=== PATIENT | male | born 1960 | race Caucasian/White ===

== ENCOUNTER 2021-02-21 08:20 | Day surgery (SDC) | payer OTHER ==
[2021-02-21] MEDS ORDERED: BUPIVACAINE 0.5% VIAL IJ ONE (08:21)
[2021-02-21] MEDS ORDERED: Depo-Medrol 40 MG/ML IM ONE (08:21)
[2021-02-21] MEDS ORDERED: DIPRIVAN 200 MG/20 ML IV ONE (09:43)
[2021-02-21] MEDS ORDERED: Lactated Ringers 1,000 ML IV ONE (16:26)
--- NOTE | 2021-02-22 11:43 | XRAY ---
10 seconds fluoroscopy time for intra-articular injection of the right shoulder.
== END 2021-02-21 10:25 | disposition home or self-care (01) ==
LOC: SDC-PAIN 08:20
PROVIDERS: ATTEND Psychiatry & Neurology Pain Medicine
DX: M19.011 Primary osteoarthritis, right shoulder (principal); E11.9 Type 2 diabetes mellitus without complications; E78.00 Pure hypercholesterolemia, unspecified; F41.9 Anxiety disorder, unspecified; Z79.899 Other long term (current) drug therapy
CPT/HCPCS: 20610; 73030; 77002; 82947; J1030; J2704; Q9966

== ENCOUNTER 2021-04-18 09:50 | Day surgery (SDC) | payer OTHER ==
[2021-04-18] MEDS ORDERED: Decadron 4 MG INJ IV ONE (09:51)
[2021-04-18] MEDS ORDERED: Xylocaine 1% Vial 30 ML PF IJ ONE (09:51)
[2021-04-18] MEDS ORDERED: LIDOCAINE HCL 2% 100 MG/5 ML IJ ONE (09:51)
[2021-04-18] MEDS ORDERED: Lactated Ringers 1,000 ML IV ONE (10:32)
[2021-04-18] MEDS ORDERED: Ketamine HCl 50 MG/ML ONE (10:58)
[2021-04-18] MEDS ORDERED: DIPRIVAN 200 MG/20 ML IV ONE (10:58)
--- NOTE | 2021-04-18 17:10 | XRAY ---
37 seconds of fluoroscopy was used in surgery for right C3-C5 MBB.
--- NOTE | 2021-04-20 09:17 | XRAY ---
Indication: Right C3-C5 MBB. Intraoperative fluoroscopy was provided for 37 seconds. 2 digital spot images submitted for interpretation demonstrate posterior spinal needle tips projected over the expected course of the right C3-C5 nerve roots. Correlate with intraoperative findings/report.
== END 2021-04-18 11:43 | disposition home or self-care (01) ==
LOC: SDC-PAIN 09:50
PROVIDERS: ATTEND Psychiatry & Neurology Pain Medicine
DX: M47.812 Spondylosis without myelopathy or radiculopathy, cervical region (principal); E11.9 Type 2 diabetes mellitus without complications; Z79.899 Other long term (current) drug therapy
CPT/HCPCS: 64490; 64491; 72040; 77002; 82947; J1100; J2001; J2704

== ENCOUNTER 2021-06-27 09:22 | Day surgery (SDC) | payer OTHER ==
[2021-06-27] MEDS ORDERED: LIDOCAINE HCL 2% 100 MG/5 ML IJ ONE (09:23)
[2021-06-27] MEDS ORDERED: Decadron 4 MG INJ IV ONE (09:23)
[2021-06-27] MEDS ORDERED: DIPRIVAN 200 MG/20 ML IV ONE (10:33)
--- NOTE | 2021-06-27 11:42 | XRAY ---
Indication: Left C3-C5 MBB. Intraoperative fluoroscopy provided for 25 seconds. 2 digital spot images submitted for interpretation demonstrate posterior needle tips projecting over the expected left C3-C5 nerve roots. Correlate with intraoperative findings/report.
--- NOTE | 2021-06-27 11:46 | XRAY ---
25 seconds fluoroscopy time in surgery for left C3-C5 MBB.
[2021-06-27] MEDS ORDERED: Lactated Ringers 1,000 ML IV ONE (17:25)
== END 2021-06-27 10:58 | disposition home or self-care (01) ==
LOC: SDC-PAIN 09:22
PROVIDERS: ATTEND Psychiatry & Neurology Pain Medicine
DX: M47.812 Spondylosis without myelopathy or radiculopathy, cervical region (principal); E11.9 Type 2 diabetes mellitus without complications; E78.5 Hyperlipidemia, unspecified; F41.9 Anxiety disorder, unspecified; Z79.899 Other long term (current) drug therapy
CPT/HCPCS: 64490; 64491; 72040; 77002; 82947; J1100; J2704

== ENCOUNTER 2022-04-26 13:03 | Inpatient (IN) | payer OTHER ==
--- NOTE | 2022-04-26 13:11 | ERPHSYRPT ---
- History of Present Illness Time Seen by Provider: 04/26/22 13:11 Source: patient Exam Limitations: no limitations Physician History: This is a 61-year-old white male patient who over the last few days has had worsening symptoms of fatigue, thirst and black tarry stool episodes. Patient has had anemia to the point where he has required blood transfusions in the distant past. Patient has type 2 diabetes, has elevated cholesterol anxiety issues. He also has a history of chronic alcoholism. However, he states he has not had alcohol since July 2021. Patient takes no medications chronically and he has no known drug allergies. There is been no chest pain but some mild shortness of breath with exertion. He has had no hematemesis. He has had no hematuria. Timing/Duration: day(s) (Last few days) Severity: moderate Associated Symptoms: abdominal pain (Mild), shortness of breath (With exertion), weakness, No chest pain, No fever Allergies/Adverse Reactions: No Known Drug Allergies Allergy (Verified 10/01/12 11:35) Home Medications: ALPRAZolam 1 MG [Xanax 1 mg] DAILY 10/01/12 [History] Fluticasone Propionate [Flovent Diskus] 1 spray IH DAILY PRN 10/01/12 [History] Dapagliflozin Propanediol [Farxiga] 10 mg PO DAILY 04/26/22 [History] Insulin Glargine,Hum.rec.anlog [Basaglar Kwikpen U-100] 25 unit SQ BID 04/26/22 [History] Liraglutide [Victoza 2-Yaniv] 1.8 mg SQ DAILY 04/26/22 [History] Lorazepam 1 mg [Ativan 1 MG] 1 mg PO 04/26/22 [History] Hx Influenza Vaccination/Date Given: Yes Hx Pneumococcal Vaccination/Date Given: No Travel Risk - International Travel Have you traveled outside of the country in past 3 weeks: No - Coronavirus Screening Are you exhibiting any of the following symptoms?: No Close contact with a COVID-19 positive Pt in past 14-21 Days: No - Review of Systems Constitutional: Weakness Eyes: No Symptoms Ears, Nose, & Throat: No Symptoms Respiratory: Dyspnea on Exertion (BLACK) Cardiac: No Symptoms Abdominal/Gastrointestinal: Abdominal Pain (Mild) Genitourinary Symptoms: No Symptoms Musculoskeletal: No Symptoms Skin: No Symptoms Neurological: No Symptoms Psychological: No Symptoms Endocrine: No Symptoms Hematologic/Lymphatic: No Symptoms Immunological/Allergic: No Symptoms All Other Systems: Reviewed and Negative - Past Medical History Pertinent Past Medical History: No Neurological History: No Pertinent History ENT History: No Pertinent History Cardiac History: No Pertinent History Respiratory History: No Pertinent History Endocrine Medical History: Diabetes Type II Musculoskeletal History: No Pertinent History GI Medical History: No Pertinent History History: No Pertinent History Psycho-Social History: Anxiety Male Reproductive Disorders: No Pertinent History - Past Surgical History Past Surgical History: Yes Neuro Surgical History: No Pertinent History Cardiac: No Pertinent History Respiratory: No Pertinent History Gastrointestinal: No Pertinent History Genitourinary: No Pertinent History Musculoskeletal: Orthopedic Surgery, Other Male Surgical History: No Pertinent History Other Surgical History: left arm bone cyst removed,right knee ligament surgery, - Social History Smoking Status: Former smoker Exposure to second hand smoke: No Drug Use: none - Nursing Vital Signs Nursing Vital Signs: Initial Vital Signs Temperature 97.6 F 04/26/22 13:10 Pulse Rate 121 H 04/26/22 13:10 Respiratory Rate 18 04/26/22 13:10 Blood Pressure 118/78 04/26/22 13:10 O2 Sat by Pulse Oximetry 98 04/26/22 13:10 Pain Scale Pain Intensity 4 - Physical Exam General Appearance: no apparent distress, alert, anxiety Eye Exam: PERRL/EOMI, scleral icterus (+/-), pale conjunctivae Ears, Nose, Throat Exam: normal ENT inspection, dry mucous membranes Neck Exam: normal inspection, non-tender Respiratory Exam: normal breath sounds, lungs clear, No chest tenderness, No respiratory distress Cardiovascular Exam: tachycardia Gastrointestinal/Abdomen Exam: soft, normal bowel sounds, tenderness (Mild right lower quadrant to palpation), No guarding, No rebound Rectal Exam: not done Back Exam: normal inspection, normal range of motion, No CVA tenderness, No vertebral tenderness Extremity Exam: normal inspection, normal range of motion, pelvis stable Neurologic Exam: alert, oriented x 3, cooperative, bond runner II-XII nml as tested, normal mood/affect, nml cerebellar function, nml station & gait, sensation nml Skin Exam: jaundice, pale Lymphatic Exam: No adenopathy SpO2 Interpretation: normal - Course Nursing assessment & vital signs reviewed: Yes Ordered Tests: Active Orders 24 hr Category Date Time Status Clean Catch Urine Specimen STAT Care 04/26/22 14:05 Active IV Insertion STAT Care 04/26/22 13:28 Active ABDOMEN AND PELVIS W/0 CONTRAS [CT] Stat Exams 04/26/22 14:42 Completed CHEST WITH CONTRAST [CT] Stat Exams 04/26/22 17:34 Taken AMYLASE Stat Lab 04/26/22 13:50 Completed BMP Stat Lab 04/26/22 Completed CBC W DIFF Stat Lab 04/26/22 13:50 Results CMP Stat Lab 04/26/22 13:50 Completed ETHYL ALCOHOL Stat Lab 04/26/22 13:50 Completed FECAL OCCULT BLOOD - SCREENING Stat Lab 04/26/22 19:15 Ordered LIPASE Stat Lab 04/26/22 13:50 Completed Lactic Acid Stat Lab 04/26/22 13:42 Completed Lactic Acid Stat Lab 04/26/22 15:54 Completed Manual Differential NC Stat Lab 04/26/22 13:50 Results POCT GLUCOSE Stat Lab 04/26/22 16:45 Completed PROCALCITONIN Stat Lab 04/26/22 15:15 Completed Pathologist Review Stat Lab 04/26/22 13:50 Results UA W/RFX CULTURE Stat Lab 04/26/22 13:55 Completed Urine Triage Profile Stat Lab 04/26/22 14:15 Completed Transfer Order Routine Transfer 04/26/22 Ordered Medication Summary Discontinued Medications Generic Name Dose Route Start Last Admin Trade Name Melani PRN Reason Stop Dose Admin Sodium Chloride 1,000 mls @ 999 mls/hr 04/26/22 13:28 04/26/22 14:58 Sodium Chloride 0.9% 1000 Ml IV 04/26/22 14:28 Infused .Q1H1M STA Infusion Sodium Chloride Confirm 04/26/22 13:47 Sodium Chloride 0.9% 1000 Ml Administered 04/26/22 13:48 Dose 1,000 mls @ ud .ROUTE .STK-MED ONE Meropenem 1 gm/ Sodium 100 mls @ 200 mls/hr 04/26/22 14:20 04/26/22 14:52 Chloride IV 04/26/22 14:49 200 mls/hr STAT ONE Administration Sodium Chloride 1,000 mls @ 999 mls/hr 04/26/22 14:20 04/26/22 16:23 Sodium Chloride 0.9% 1000 Ml IV 04/26/22 15:20 Infused .Q1H1M STA Infusion Sodium Chloride Confirm 04/26/22 14:50 Sodium Chloride 100ml Mini-Bag Plus Administered 04/26/22 14:51 Dose 100 mls @ ud IV .STK-MED ONE Sodium Chloride 1,000 mls @ 999 mls/hr 04/26/22 15:13 04/26/22 17:27 Sodium Chloride 0.9% 1000 Ml IV 04/26/22 16:13 Infused .Q1H1M STA Infusion Sodium Chloride Confirm 04/26/22 15:16 Sodium Chloride 0.9% 1000 Ml Administered 04/26/22 15:17 Dose 1,000 mls @ ud .ROUTE .STK-MED ONE Sodium Chloride Confirm 04/26/22 16:23 Sodium Chloride 0.9% 1000 Ml Administered 04/26/22 16:24 Dose 1,000 mls @ ud .ROUTE .STK-MED ONE Meropenem Confirm 04/26/22 14:49 Meropenem 1 Gm Vial Administered 04/26/22 14:50 Dose 1 gm IV .STK-MED ONE Ondansetron HCl 4 mg 04/26/22 13:28 04/26/22 13:52 Ondansetron Hcl 4 Mg/2 Ml Vial IV 04/26/22 13:29 4 mg STAT ONE Administration Ondansetron HCl Confirm 04/26/22 13:46 Ondansetron Hcl 4 Mg/2 Ml Vial Administered 04/26/22 13:47 Dose 4 mg .ROUTE .STK-MED ONE Pantoprazole Sodium 40 mg 04/26/22 13:28 04/26/22 13:52 Pantoprazole 40 Mg Vial IV 04/26/22 13:29 40 mg STAT ONE Administration Pantoprazole Sodium Confirm 04/26/22 13:46 Pantoprazole 40 Mg Vial Administered 04/26/22 13:47 Dose 40 mg IV .STK-MED ONE Lab/Rad Data: Laboratory Result Diagrams 04/26/22 13:50 04/26/22 Unknown Laboratory Results 04/26/22 04/26/22 04/26/22 Range/Units Unknown 17:20 16:45 WBC (4.0-10.5) x10^3/uL RBC (4.1-5.6) x10^6/uL Hgb (12.5-18.0) g/dL Hct (42-50) % MCV (78-100) fL MCH (26-32) pg MCHC (32-36) g/dL RDW (11.5-14.0) % Plt Count (150-450) x10^3/uL MPV (7.5-11.0) fL Gran % (36.0-66.0) % Immature Gran % (Auto) (0.00-0.4) % Nucleat RBC Rel Count (0.00-0.1) % Eos # (Auto) (0-0.5) x10^3/uL Immature Gran # (Auto) (0.00-0.03) x10^3u/L Absolute Lymphs (auto) (1.0-4.6) x10^3/uL Absolute Monos (auto) (0.0-1.3) x10^3/uL Absolute Nucleated RBC (0.00-0.01) x10^3u/L Lymphocytes % (24.0-44.0) % Monocytes % (0.0-12.0) % Eosinophils % (0.00-5.0) % Basophils % (0.0-0.4) % Absolute Granulocytes (1.4-6.9) x10^3/uL Segmented Neutrophils (36.-66.) % Lymphocytes (Manual) (24-44) % Monocytes (Manual) (0.0-12.0) % Eosinophils (Manual) (0.00-3.0) % Basophils (Manual) (0.0-1.0) % Basophils # (0-0.4) x10^3/uL Platelet Estimate (NORMAL) RBC Morphology Anisocytosis Morphology Comment Smear Path Review Sodium 137 (137-145) mmol/L Potassium 4.7 (3.5-5.1) mmol/L Chloride 108 H (98-107) mmol/L Carbon Dioxide 18 L (22-30) mmol/L Anion Gap 15.2 H (5-15) MEQ/L BUN 50 H (9-20) mg/dL Creatinine 0.80 (0.66-1.25) mg/dL Estimated GFR > 60.0 ML/MIN Glucose 184 H (74-106) mg/dL POC Glucometer 166 H (74 to 106) mg/dL Lactic Acid (0.4-2.0) Calcium 7.4 L (8.4-10.2) mg/dL Total Bilirubin (0.2-1.3) mg/dL AST (17-59) U/L ALT (0-50) U/L Alkaline Phosphatase (38-126) U/L Serum Total Protein (6.3-8.2) g/dL Albumin (3.5-5.0) g/dL Amylase (30-110) U/L Lipase (23-300) U/L Procalcitonin (0.030-0.080) ng/mL Urinalys Dipstick Clnc Urine Color (YELLOW) Urine Appearance (CLEAR) Urine pH (5-6) Ur Specific [place] (1.005-1.025) POC Urine Protein Conf (Negative) Urine Ketones (NEGATIVE) Urine Nitrite (NEGATIVE) Urine Bilirubin (NEGATIVE) Urine Urobilinogen (0-1) mg/dL Urine Leukocytes (NEGATIVE) Urine WBC (Auto) (0-5) /HPF Urine RBC (Auto) (0-2) /HPF U Epithel Cells (Auto) (FEW) /HPF Urine Bacteria (Auto) (NEGATIVE) /HPF Urine RBC (0-5) Kyle/ul Urine Mucus (Auto) (NEGATIVE) /HPF Ur Culture Indicated? Urine Glucose (NEGATIVE) mg/dL Urine Opiates Level (NEGATIVE) Ur Methadone (NEGATIVE) Urine Barbiturates (NEGATIVE) Ur Phencyclidine (PCP) (NEGATIVE) Urine Amphetamine (NEGATIVE) U Benzodiazepine Level (NEGATIVE) Urine Cocaine (NEGATIVE) Urine Marijuana (THC) (NEGATIVE) Ethyl Alcohol (0-10) mg/dL Influenza Type A Ag NEGATIVE (NEGATIVE) Influenza Type B Ag NEGATIVE (NEGATIVE) RSV (PCR) NEGATIVE (Negative) SARS-CoV-2 (PCR) NEGATIVE (NEGATIVE) 04/26/22 04/26/22 04/26/22 Range/Units 15:54 15:15 14:15 WBC (4.0-10.5) x10^3/uL RBC (4.1-5.6) x10^6/uL Hgb (12.5-18.0) g/dL Hct (42-50) % MCV (78-100) fL MCH (26-32) pg MCHC (32-36) g/dL RDW (11.5-14.0) % Plt Count (150-450) x10^3/uL MPV (7.5-11.0) fL Gran % (36.0-66.0) % Immature Gran % (Auto) (0.00-0.4) % Nucleat RBC Rel Count (0.00-0.1) % Eos # (Auto) (0-0.5) x10^3/uL Immature Gran # (Auto) (0.00-0.03) x10^3u/L Absolute Lymphs (auto) (1.0-4.6) x10^3/uL Absolute Monos (auto) (0.0-1.3) x10^3/uL Absolute Nucleated RBC (0.00-0.01) x10^3u/L Lymphocytes % (24.0-44.0) % Monocytes % (0.0-12.0) % Eosinophils % (0.00-5.0) % Basophils % (0.0-0.4) % Absolute Granulocytes (1.4-6.9) x10^3/uL Segmented Neutrophils (36.-66.) % Lymphocytes (Manual) (24-44) % Monocytes (Manual) (0.0-12.0) % Eosinophils (Manual) (0.00-3.0) % Basophils (Manual) (0.0-1.0) % Basophils # (0-0.4) x10^3/uL Platelet Estimate (NORMAL) RBC Morphology Anisocytosis Morphology Comment Smear Path Review Sodium (137-145) mmol/L Potassium (3.5-5.1) mmol/L Chloride (98-107) mmol/L Carbon Dioxide (22-30) mmol/L Anion Gap (5-15) MEQ/L BUN (9-20) mg/dL Creatinine (0.66-1.25) mg/dL Estimated GFR ML/MIN Glucose (74-106) mg/dL POC Glucometer (74 to 106) mg/dL Lactic Acid 4.6 H (0.4-2.0) Calcium (8.4-10.2) mg/dL Total Bilirubin (0.2-1.3) mg/dL AST (17-59) U/L ALT (0-50) U/L Alkaline Phosphatase (38-126) U/L Serum Total Protein (6.3-8.2) g/dL Albumin (3.5-5.0) g/dL Amylase (30-110) U/L Lipase (23-300) U/L Procalcitonin 0.231 H (0.030-0.080) ng/mL Urinalys Dipstick Clnc Urine Color (YELLOW) Urine Appearance (CLEAR) Urine pH (5-6) Ur Specific [place] (1.005-1.025) POC Urine Protein Conf (Negative) Urine Ketones (NEGATIVE) Urine Nitrite (NEGATIVE) Urine Bilirubin (NEGATIVE) Urine Urobilinogen (0-1) mg/dL Urine Leukocytes (NEGATIVE) Urine WBC (Auto) (0-5) /HPF Urine RBC (Auto) (0-2) /HPF U Epithel Cells (Auto) (FEW) /HPF Urine Bacteria (Auto) (NEGATIVE) /HPF Urine RBC (0-5) Kyle/ul Urine Mucus (Auto) (NEGATIVE) /HPF Ur Culture Indicated? Urine Glucose (NEGATIVE) mg/dL Urine Opiates Level NEGATIVE (NEGATIVE) Ur Methadone NEGATIVE (NEGATIVE) Urine Barbiturates NEGATIVE (NEGATIVE) Ur Phencyclidine (PCP) NEGATIVE (NEGATIVE) Urine Amphetamine NEGATIVE (NEGATIVE) U Benzodiazepine Level NEGATIVE (NEGATIVE) Urine Cocaine NEGATIVE (NEGATIVE) Urine Marijuana (THC) NEGATIVE (NEGATIVE) Ethyl Alcohol (0-10) mg/dL Influenza Type A Ag (NEGATIVE) Influenza Type B Ag (NEGATIVE) RSV (PCR) (Negative) SARS-CoV-2 (PCR) (NEGATIVE) 04/26/22 04/26/22 04/26/22 Range/Units 13:55 13:50 13:50 WBC (4.0-10.5) x10^3/uL RBC (4.1-5.6) x10^6/uL Hgb (12.5-18.0) g/dL Hct (42-50) % MCV (78-100) fL MCH (26-32) pg MCHC (32-36) g/dL RDW (11.5-14.0) % Plt Count (150-450) x10^3/uL MPV (7.5-11.0) fL Gran % (36.0-66.0) % Immature Gran % (Auto) (0.00-0.4) % Nucleat RBC Rel Count (0.00-0.1) % Eos # (Auto) (0-0.5) x10^3/uL Immature Gran # (Auto) (0.00-0.03) x10^3u/L Absolute Lymphs (auto) (1.0-4.6) x10^3/uL Absolute Monos (auto) (0.0-1.3) x10^3/uL Absolute Nucleated RBC (0.00-0.01) x10^3u/L Lymphocytes % (24.0-44.0) % Monocytes % (0.0-12.0) % Eosinophils % (0.00-5.0) % Basophils % (0.0-0.4) % Absolute Granulocytes (1.4-6.9) x10^3/uL Segmented Neutrophils (36.-66.) % Lymphocytes (Manual) (24-44) % Monocytes (Manual) (0.0-12.0) % Eosinophils (Manual) (0.00-3.0) % Basophils (Manual) (0.0-1.0) % Basophils # (0-0.4) x10^3/uL Platelet Estimate (NORMAL) RBC Morphology Anisocytosis Morphology Comment Smear Path Review Sodium 135 L (137-145) mmol/L Potassium 4.8 (3.5-5.1) mmol/L Chloride 106 (98-107) mmol/L Carbon Dioxide 17 L (22-30) mmol/L Anion Gap 17.7 H (5-15) MEQ/L BUN 51 H (9-20) mg/dL Creatinine 0.79 (0.66-1.25) mg/dL Estimated GFR > 60.0 ML/MIN Glucose 210 H (74-106) mg/dL POC Glucometer (74 to 106) mg/dL Lactic Acid (0.4-2.0) Calcium 8.1 L (8.4-10.2) mg/dL Total Bilirubin 1.50 H (0.2-1.3) mg/dL AST 40 (17-59) U/L ALT 34 (0-50) U/L Alkaline Phosphatase 56 (38-126) U/L Serum Total Protein 5.5 L (6.3-8.2) g/dL Albumin 3.3 L (3.5-5.0) g/dL Amylase 45 (30-110) U/L Lipase 119 (23-300) U/L Procalcitonin (0.030-0.080) ng/mL Urinalys Dipstick Clnc MAIN LAB Urine Color YELLOW (YELLOW) Urine Appearance CLEAR (CLEAR) Urine pH 5.5 (5-6) Ur Specific [place] 1.010 (1.005-1.025) POC Urine Protein Conf NEGATIVE (Negative) Urine Ketones MODERATE-40 (NEGATIVE) Urine Nitrite NEGATIVE (NEGATIVE) Urine Bilirubin NEGATIVE (NEGATIVE) Urine Urobilinogen 0.2 (0-1) mg/dL Urine Leukocytes NEGATIVE (NEGATIVE) Urine WBC (Auto) NONE (0-5) /HPF Urine RBC (Auto) NONE (0-2) /HPF U Epithel Cells (Auto) NONE (FEW) /HPF Urine Bacteria (Auto) NONE (NEGATIVE) /HPF Urine RBC NEGATIVE (0-5) Kyle/ul Urine Mucus (Auto) SLIGHT (NEGATIVE) /HPF Ur Culture Indicated? NO Urine Glucose 500 (NEGATIVE) mg/dL Urine Opiates Level (NEGATIVE) Ur Methadone (NEGATIVE) Urine Barbiturates (NEGATIVE) Ur Phencyclidine (PCP) (NEGATIVE) Urine Amphetamine (NEGATIVE) U Benzodiazepine Level (NEGATIVE) Urine Cocaine (NEGATIVE) Urine Marijuana (THC) (NEGATIVE) Ethyl Alcohol < 10 (0-10) mg/dL Influenza Type A Ag (NEGATIVE) Influenza Type B Ag (NEGATIVE) RSV (PCR) (Negative) SARS-CoV-2 (PCR) (NEGATIVE) 04/26/22 04/26/22 Range/Units 13:50 13:42 WBC 29.6 H* (4.0-10.5) x10^3/uL RBC 2.84 L (4.1-5.6) x10^6/uL Hgb 9.1 L (12.5-18.0) g/dL Hct 27.9 L (42-50) % MCV 98.2 (78-100) fL MCH 32.0 (26-32) pg MCHC 32.6 (32-36) g/dL RDW 15.1 H (11.5-14.0) % Plt Count 207 (150-450) x10^3/uL MPV 12.2 H (7.5-11.0) fL Gran % 50.5 (36.0-66.0) % Immature Gran % (Auto) 1.3 H (0.00-0.4) % Nucleat RBC Rel Count 0.3 H (0.00-0.1) % Eos # (Auto) 0.08 (0-0.5) x10^3/uL Immature Gran # (Auto) 0.39 H (0.00-0.03) x10^3u/L Absolute Lymphs (auto) 13.14 H (1.0-4.6) x10^3/uL Absolute Monos (auto) 0.82 (0.0-1.3) x10^3/uL Absolute Nucleated RBC 0.10 H (0.00-0.01) x10^3u/L Lymphocytes % 44.5 H (24.0-44.0) % Monocytes % 2.8 (0.0-12.0) % Eosinophils % 0.3 (0.00-5.0) % Basophils % 0.6 (0.0-0.4) % Absolute Granulocytes 14.95 H (1.4-6.9) x10^3/uL Segmented Neutrophils 85 H (36.-66.) % Lymphocytes (Manual) 12 L (24-44) % Monocytes (Manual) 1 (0.0-12.0) % Eosinophils (Manual) 1 (0.00-3.0) % Basophils (Manual) 1 (0.0-1.0) % Basophils # 0.17 (0-0.4) x10^3/uL Platelet Estimate NORMAL (NORMAL) RBC Morphology ABNORMAL Anisocytosis 2+ Morphology Comment Smear Path Review Pending Sodium (137-145) mmol/L Potassium (3.5-5.1) mmol/L Chloride (98-107) mmol/L Carbon Dioxide (22-30) mmol/L Anion Gap (5-15) MEQ/L BUN (9-20) mg/dL Creatinine (0.66-1.25) mg/dL Estimated GFR ML/MIN Glucose (74-106) mg/dL POC Glucometer (74 to 106) mg/dL Lactic Acid 5.1 H (0.4-2.0) Calcium (8.4-10.2) mg/dL Total Bilirubin (0.2-1.3) mg/dL AST (17-59) U/L ALT (0-50) U/L Alkaline Phosphatase (38-126) U/L Serum Total Protein (6.3-8.2) g/dL Albumin (3.5-5.0) g/dL Amylase (30-110) U/L Lipase (23-300) U/L Procalcitonin (0.030-0.080) ng/mL Urinalys Dipstick Clnc Urine Color (YELLOW) Urine Appearance (CLEAR) Urine pH (5-6) Ur Specific [place] (1.005-1.025) POC Urine Protein Conf (Negative) Urine Ketones (NEGATIVE) Urine Nitrite (NEGATIVE) Urine Bilirubin (NEGATIVE) Urine Urobilinogen (0-1) mg/dL Urine Leukocytes (NEGATIVE) Urine WBC (Auto) (0-5) /HPF Urine RBC (Auto) (0-2) /HPF U Epithel Cells (Auto) (FEW) /HPF Urine Bacteria (Auto) (NEGATIVE) /HPF Urine RBC (0-5) Kyle/ul Urine Mucus (Auto) (NEGATIVE) /HPF Ur Culture Indicated? Urine Glucose (NEGATIVE) mg/dL Urine Opiates Level (NEGATIVE) Ur Methadone (NEGATIVE) Urine Barbiturates (NEGATIVE) Ur Phencyclidine (PCP) (NEGATIVE) Urine Amphetamine (NEGATIVE) U Benzodiazepine Level (NEGATIVE) Urine Cocaine (NEGATIVE) Urine Marijuana (THC) (NEGATIVE) Ethyl Alcohol (0-10) mg/dL Influenza Type A Ag (NEGATIVE) Influenza Type B Ag (NEGATIVE) RSV (PCR) (Negative) SARS-CoV-2 (PCR) (NEGATIVE) - Progress Progress: improved, re-examined Progress Note: 04/26/22 15:24 CAT scan of the abdomen pelvis without contrast shows fluid distention of the jejunum: Ileus versus enteritis. There is a cirrhotic liver. There is diverticulosis without diverticulitis. 04/26/22 20:05 CTA of chest shows no pulmonary emboli. There is no evidence of any acute cardiopulmonary process. Medical decision making: This patient has leukocytosis with lactic acidemia. We do not have a source of his presumed/possible sepsis. He also has dark tarry stools and hemoglobin 9.1. I spoke with Dr. Haney who is covering this weekend as hospitalist. He wanted me to perform a CT of the chest as well as add a procalcitonin. The procalcitonin level is high and the CTA of the chest shows no acute cardiopulmonary process. We will admit him into the hospital and provide him with IV hydration as well as continue Primaxin and put him on a diabetic diet and sliding scale insulin. We will also obtain a fecal occult s tool. Discussed with : Shola Counseled pt/family regarding: lab results, diagnosis, rad results - Departure Departure Disposition: In-patient Admission Clinical Impression: Leukocytosis, Anemia, Lactic acidemia, Sepsis, Dehydration Condition: Fair Critical Care Time: Yes Critical Care Time(excluding separately billable procedures): Critical 30-74 mins Referrals: LIONEL ROE DO [Primary Care Provider] - Follow up/PCP as directed
[2022-04-26] MEDS ORDERED: PROTONIX 40 MG IV IV ONE ×2 (13:28→13:46)
[2022-04-26] MEDS ORDERED: Sodium Chloride 0.9% 1000 ML 1,000 ML IV STA ×3 (13:28→15:13)
[2022-04-26] MEDS ORDERED: Zofran 4 MG/2 ML VIAL IV ONE (13:28)
[2022-04-26] MEDS ORDERED: Zofran 4 MG/2 ML VIAL ONE (13:46)
[2022-04-26] MEDS ORDERED: Sodium Chloride 0.9% 1000 ML 1,000 ML ONE ×3 (13:47→16:23)
[2022-04-26 14:00] LABS: Absolute Neutrophil Ct (ANC) 14.95 x10^3/uL (1.4-6.9); Basophil (Absolute #) 0.17 x10^3/uL (0-0.4); Eosinophil % 0.3 % (0.00-5.0); Eosinophil (Absolute #) 0.08 x10^3/uL (0-0.5); Hematocrit 27.9 % (42-50); Hemoglobin 9.1 g/dL (12.5-18.0); Lymphocyte (Absolute #) 13.14 x10^3/uL (1.0-4.6); Lymphocytes % 44.5 % (24.0-44.0); Mean Cell Volume 98.2 fL (78-100); Mean Corpuscular Hgb Concent. 32.6 g/dL (32-36); Mean Platelet Volume 12.2 fL (7.5-11.0); Monocyte (Absolute #) 0.82 x10^3/uL (0.0-1.3); Monocytes % 2.8 % (0.0-12.0); Neutrophil % 50.5 % (36.0-66.0); Platelet Count 207 x10^3/uL (150-450); Red Blood Count 2.84 x10^6/uL (4.1-5.6); Red Cell Distribution Width 15.1 % (11.5-14.0)
[2022-04-26 14:03] LABS: White Blood Count 29.6 x10^3/uL (4.0-10.5)
[2022-04-26 14:06] LABS: Mucus SLIGHT /HPF (NEGATIVE)
[2022-04-26 14:07] LABS: Appearance CLEAR (CLEAR); Bilirubin NEGATIVE (NEGATIVE); Dipstick done @ ? MAIN LAB; Glucose 500 mg/dL (NEGATIVE); Ketones MODERATE-40 (NEGATIVE); Nitrite NEGATIVE (NEGATIVE); Ph 5.5 (5-6); Protein,Urine Dip NEGATIVE (Negative); RBC NEGATIVE Ery/ul (0-5); Urobilinogen 0.2 mg/dL (0-1)
[2022-04-26 14:08] LABS: Urine Cultured Indicated? NO
[2022-04-26 14:12] LABS: ALBUMIN 3.3 g/dL (3.5-5.0); ALKALINE PHOSPHATASE 56 U/L (38-126); AMYLASE 45 U/L (30-110); ANION GAP 17.7 MEQ/L (5-15); BLOOD UREA NITROGEN 51 mg/dL (9-20); CHLORIDE 106 mmol/L (98-107); Calcium 8.1 mg/dL (8.4-10.2); Carbon Dioxide 17 mmol/L (22-30); Creatinine 1 0.79 mg/dL (0.66-1.25); EST GLOMERULAR FILTRATION RATE > 60.0 ML/MIN; Glucose 210 mg/dL (74-106); LIPASE 119 U/L (23-300); Potassium 4.8 mmol/L (3.5-5.1); SGOT/AST 40 U/L (17-59); SGPT/ALT 34 U/L (0-50); SODIUM 135 mmol/L (137-145); Total Protein 5.5 g/dL (6.3-8.2)
[2022-04-26] MEDS ORDERED: Merrem 1 GM in Sodium Chloride 100ML MINI-BAG PLUS 100 ML IV ONE (14:20)
[2022-04-26 14:31] LABS: Amphetamine,Urine NEGATIVE (NEGATIVE); Barbiturate,Urine NEGATIVE (NEGATIVE); Benzodiazepine,Urine NEGATIVE (NEGATIVE); Cocaine,Urine NEGATIVE (NEGATIVE); Methadone,Urine NEGATIVE (NEGATIVE); Opiate,Urine NEGATIVE (NEGATIVE); PCP,Urine NEGATIVE (NEGATIVE); THC,Urine NEGATIVE (NEGATIVE)
[2022-04-26] MEDS ORDERED: Merrem IV ONE ×2 (14:49→21:54)
[2022-04-26] MEDS ORDERED: Sodium Chloride 100ML MINI-BAG PLUS 100 ML IV ONE ×2 (14:50→21:57)
--- NOTE | 2022-04-26 15:00 | XRAY ---
Indication: Abdomen pain and tarry stools. Multiple contiguous axial images obtained through the abdomen and pelvis without contrast. Comparison: None Lung bases demonstrates pulmonary emphysema and small right lower lobe calcified granuloma. No infiltrate or effusion. Heart not enlarged. Stomach is distended with food/fluid. Noncontrasted stomach and bowel loops appear nonobstructed. Jejunal bowel loop is mildly distended up to 4.1 cm either focal ileus versus enteritis. Appendix not visualized. Sigmoid diverticulosis without diverticulitis. No free fluid/air. Liver demonstrates micronodular margins favoring cirrhosis. Gallbladder mildly distended without gallstones or biliary distention. 13.2 cm splenomegaly with calcified granuloma. Remaining liver, gallbladder, pancreas, spleen, adrenal glands, kidneys, ureters, and bladder are unremarkable for noncontrast exam. Mild scattered aortoiliac calcifications without AAA. Osseous structures intact with mild degenerative changes throughout the thoracolumbar spine. Left iliac crest demonstrates small old nonunited fracture. Impression: 1. Fluid distended jejunum, ileus versus enteritis. 2. Chronic findings including sigmoid diverticulosis, cirrhotic liver, splenomegaly, arteriosclerotic disease, pulmonary emphysema, chronic bony findings, and old granulomatous disease.
[2022-04-26 15:30] LABS: Basophil 1 % (0.0-1.0); Eosinophil 1 % (0.00-3.0); Lymphocytes 12 % (24-44); Monocyte 1 % (0.0-12.0); Platelet Estimate NORMAL (NORMAL); Total Cells Counted 100
[2022-04-26 15:31] LABS: ANISOCYTOSIS 2+
[2022-04-26 15:55] LABS: ANION GAP 15.2 MEQ/L (5-15); BLOOD UREA NITROGEN 50 mg/dL (9-20); CHLORIDE 108 mmol/L (98-107); Calcium 7.4 mg/dL (8.4-10.2); Carbon Dioxide 18 mmol/L (22-30); EST GLOMERULAR FILTRATION RATE > 60.0 ML/MIN; Glucose 184 mg/dL (74-106); Potassium 4.7 mmol/L (3.5-5.1); SODIUM 137 mmol/L (137-145)
[2022-04-26 18:02] LABS: INFLUENZA A NEGATIVE (NEGATIVE); INFLUENZA B NEGATIVE (NEGATIVE); RESPIRATORY SYNCTIAL VIRUS NEGATIVE (Negative); SARS-CoV-2 Xpert Express NEGATIVE (NEGATIVE)
[2022-04-26] MEDS ORDERED: Zofran 4 MG/2 ML VIAL IV PRN (20:34)
[2022-04-26] MEDS ORDERED: PROTONIX 40 MG IV IV SCH (20:34)
[2022-04-26] MEDS ORDERED: TYLENOL 325 MG PO PRN (20:34)
[2022-04-26] MEDS ORDERED: Sodium Chloride 0.9% 1000 ML 1,000 ML IV SCH (20:34)
--- NOTE | 2022-04-26 22:39 | XRAY ---
Indication: Short of breath. Leukocytosis. Pulmonary embolus. Multiple contiguous axial images obtained through the chest using 100 cc Isovue 370 contrast and PE protocol. Comparison: None Good opacification of the pulmonary arteries to include the lobar and segmental branches. No pulmonary embolus. Heart is not enlarged. Aorta is normal in course and caliber. Tiny right hilar calcified nodes. No pathologic mediastinal/hilar lymphadenopathy. Distal esophagus mildly fluid distended favoring gastroesophageal reflux. Lungs inflated and clear. Bony thorax intact with minimal degenerative changes throughout the spine. Limited upper abdomen demonstrates cirrhotic liver, 13.9 cm splenomegaly, splenic calcified granuloma, and tiny 4 mm right renal cyst. Stomach is markedly distended with food/fluid. Impression: 1. Negative pulmonary embolus. No acute cardiopulmonary mellitus. 2. Incidental cirrhotic liver, splenomegaly, tiny right renal cyst, degenerative spondylosis, and old granulomatous disease. Comment: Preliminary interpretation made by [facility]. No critical discrepancy.
[2022-04-26] MEDS ORDERED: Naprosyn 500 MG PO PRN (22:45)
[2022-04-26] MEDS: Merrem 1 GM in Sodium Chloride 100ML MINI-BAG PLUS 100 ML IV SCH (23:06)
[2022-04-26] MEDS: Ativan 1 MG PO PRN (23:06)
[2022-04-26] MEDS: HUMULIN R SQ PRN (23:07)
[2022-04-26] MEDS: ZOCOR 20MG PO SCH (23:28)
[2022-04-27 05:27] LABS: Basophil (Absolute #) 0.09 x10^3/uL (0-0.4); Eosinophil % 0.9 % (0.00-5.0); Hematocrit 20.4 % (42-50); Lymphocytes % 39.9 % (24.0-44.0); Mean Cell Volume 98.6 fL (78-100); Mean Corpuscular Hemoglobin 31.9 pg (26-32); Mean Corpuscular Hgb Concent. 32.4 g/dL (32-36); Mean Platelet Volume 11.5 fL (7.5-11.0); Monocyte (Absolute #) 2.15 x10^3/uL (0.0-1.3); Monocytes % 9.9 % (0.0-12.0); Neutrophil % 47.6 % (36.0-66.0); Platelet Count 124 x10^3/uL (150-450); Red Blood Count 2.07 x10^6/uL (4.1-5.6); Red Cell Distribution Width 15.8 % (11.5-14.0); White Blood Count 21.8 x10^3/uL (4.0-10.5)
[2022-04-27 05:35] LABS: Hemoglobin 6.6 g/dL (12.5-18.0)
[2022-04-27 05:55] LABS: ALBUMIN 2.6 g/dL (3.5-5.0); ALKALINE PHOSPHATASE 51 U/L (38-126); ANION GAP 8.3 MEQ/L (5-15); BLOOD UREA NITROGEN 37 mg/dL (9-20); CHLORIDE 107 mmol/L (98-107); Calcium 7.2 mg/dL (8.4-10.2); Carbon Dioxide 23 mmol/L (22-30); Creatinine 1 0.88 mg/dL (0.66-1.25); EST GLOMERULAR FILTRATION RATE > 60.0 ML/MIN; Glucose 151 mg/dL (74-106); Potassium 3.8 mmol/L (3.5-5.1); SGOT/AST 43 U/L (17-59); SGPT/ALT 31 U/L (0-50); SODIUM 134 mmol/L (137-145); Total Protein 4.7 g/dL (6.3-8.2)
[2022-04-27] MEDS ORDERED: Merrem IV ONE (06:21)
[2022-04-27] MEDS ORDERED: Sodium Chloride 100ML MINI-BAG PLUS 100 ML IV ONE (06:22)
[2022-04-27] MEDS: Merrem 1 GM in Sodium Chloride 100ML MINI-BAG PLUS 100 ML IV SCH ×3 (06:25→21:23)
[2022-04-27] MEDS ORDERED: FLUTICASONE PROPIONATE 50 MCG IH PRN (07:47)
[2022-04-27 07:57] LABS: ABO TYPING A; Antibody Screen NEGATIVE (NEGATIVE); RH TYPING POSITIVE
[2022-04-27 07:59] LABS: CROSS MATCH (PRBC) COMPATIBLE (COMPATIBLE)
[2022-04-27] MEDS ORDERED: MEDICATION INTERVENTION MC SCH ×3 (08:45→10:30)
[2022-04-27] MEDS ORDERED: NON-FORMULARY ITEM (Liraglutide [Victoza 2-Pak] 0.6 MG/0.1 ML Box) SQ SCH ×2 (10:00)
[2022-04-27] MEDS ORDERED: NON-FORMULARY ITEM (Spironolactone [Spironolactone] 50 MG Tablet) PO SCH (10:00)
[2022-04-27] MEDS ORDERED: NON-FORMULARY ITEM (Insulin Glargine,Hum.Rec.Anlog [Basaglar Kwikpen U-100] 100 UNIT/ML In SQ SCH (10:00)
[2022-04-27] MEDS ORDERED: NON-FORMULARY ITEM (Escitalopram Oxalate [Escitalopram Oxalate] 20 MG Tablet) PO SCH (10:00)
[2022-04-27] MEDS ORDERED: NON-FORMULARY ITEM (Dapagliflozin Propanediol [Farxiga] 10 MG Tablet) PO SCH (10:00)
[2022-04-27 10:02] LABS: Slide Review 1 YES
[2022-04-27] MEDS: Aldactone 25 MG PO SCH (10:57)
[2022-04-27] MEDS: Pepcid 20 MG VIAL IV SCH ×2 (10:57→21:15)
[2022-04-27] MEDS: Lexapro PO SCH (10:57)
[2022-04-27] MEDS: LASIX 20 MG PO SCH (10:57)
[2022-04-27] MEDS: Lantus Insulin SQ SCH ×2 (11:04→21:15)
[2022-04-27] MEDS: Sodium Chloride 0.9% 500 ML 500 ML IV SCH ×2 (11:06→15:38)
[2022-04-27] MEDS ORDERED: Lasix 20 MG/2 ML IV PRN (12:00)
[2022-04-27] MEDS: HUMULIN R SQ PRN ×3 (12:46→21:15)
[2022-04-27 20:52] LABS: Hemoglobin 7.9 g/dL (12.5-18.0)
[2022-04-27] MEDS: PROTONIX 40 MG IV IV SCH (21:15)
[2022-04-27] MEDS: ZOCOR 20MG PO SCH (21:16)
[2022-04-27] MEDS: Ativan 1 MG PO PRN (21:16)
[2022-04-27] MEDS ORDERED: Lasix 20 MG/2 ML IV SCH (21:45)
[2022-04-28 00:53] LABS: CROSS MATCH (PRBC) COMPATIBLE (COMPATIBLE)
[2022-04-28] MEDS: Merrem 1 GM in Sodium Chloride 100ML MINI-BAG PLUS 100 ML IV SCH ×3 (06:49→21:29)
[2022-04-28] MEDS: Pepcid 20 MG VIAL IV SCH ×2 (08:15→21:26)
[2022-04-28] MEDS: HUMULIN R SQ PRN ×3 (08:15→21:24)
[2022-04-28] MEDS: Lantus Insulin SQ SCH ×2 (08:15→21:21)
[2022-04-28] MEDS: Lexapro PO SCH (08:15)
[2022-04-28 08:16] LABS: Hematocrit 29.3 % (42-50); Hemoglobin 9.8 g/dL (12.5-18.0); Mean Cell Volume 93.3 fL (78-100); Mean Corpuscular Hemoglobin 31.2 pg (26-32); Mean Corpuscular Hgb Concent. 33.4 g/dL (32-36); Mean Platelet Volume 11.3 fL (7.5-11.0); Platelet Count 79 x10^3/uL (150-450); Red Blood Count 3.14 x10^6/uL (4.1-5.6); Red Cell Distribution Width 17.6 % (11.5-14.0); White Blood Count 13.2 x10^3/uL (4.0-10.5)
[2022-04-28 08:38] LABS: ANION GAP 7.8 MEQ/L (5-15); BLOOD UREA NITROGEN 19 mg/dL (9-20); CHLORIDE 101 mmol/L (98-107); Calcium 7.3 mg/dL (8.4-10.2); Carbon Dioxide 29 mmol/L (22-30); Creatinine 1 0.75 mg/dL (0.66-1.25); EST GLOMERULAR FILTRATION RATE > 60.0 ML/MIN; Glucose 173 mg/dL (74-106); Potassium 3.3 mmol/L (3.5-5.1); SODIUM 134 mmol/L (137-145)
[2022-04-28] MEDS ORDERED: Klor Con PO ONE (10:49)
[2022-04-28] MEDS: Aldactone 25 MG PO SCH (11:49)
[2022-04-28] MEDS: LASIX 20 MG PO SCH (11:49)
[2022-04-28 16:20] LABS: Slide Review YES
[2022-04-28 16:32] LABS: Hematocrit 28.5 % (42-50); Hemoglobin 9.6 g/dL (12.5-18.0); Mean Cell Volume 94.1 fL (78-100); Mean Corpuscular Hemoglobin 31.7 pg (26-32); Mean Corpuscular Hgb Concent. 33.7 g/dL (32-36); Mean Platelet Volume 11.6 fL (7.5-11.0); Platelet Count 87 x10^3/uL (150-450); Red Blood Count 3.03 x10^6/uL (4.1-5.6); White Blood Count 11.1 x10^3/uL (4.0-10.5)
--- NOTE | 2022-04-28 18:03 | XRAY ---
Indication: Abdomen distention. History cirrhosis. Ascites. Multiple contiguous images obtained through the abdomen and pelvis without contrast. Comparison: None Lung bases demonstrates small nonspecific right effusion and tiny right lower lobe calcified granuloma. Heart not enlarged. Noncontrasted stomach and bowel loops appear nonobstructed. Jejunal bowel loops again mildly distended with wall thickening, ileus versus enteritis. Appendix not visualized. Again cirrhotic appearing liver with new mild diffuse abdominal and pelvic ascites. Spleen continues to be enlarged today measuring 15.4 cm again with a few calcified granulomas. Remaining gallbladder, pancreas, adrenal glands, kidneys, ureters, and bladder are unremarkable for noncontrast exam. Mild scattered aortoiliac calcifications without AAA. Osseous structures intact again with mild degenerative changes throughout the thoracolumbar spine and small old nonunited left iliac crest fracture. Impression: 1. Again cirrhotic liver with new abdominal/pelvic ascites. 2. New small right pleural effusion. 3. Again mild distended jejunum with wall thickening. Rule out ileus versus enteritis. 4. Again splenomegaly, arteriosclerotic disease, chronic bony findings, and old granulomatous disease. Comment: Preliminary interpretation made by [facility]. No critical discrepancy.
[2022-04-28] MEDS: ZOCOR 20MG PO SCH (21:25)
[2022-04-28] MEDS: PROTONIX 40 MG IV IV SCH (21:29)
[2022-04-29] MEDS ORDERED: Sodium Chloride 0.9% 500 ML 500 ML IV ONE (04:04)
[2022-04-29] MEDS: Merrem 1 GM in Sodium Chloride 100ML MINI-BAG PLUS 100 ML IV SCH ×2 (05:04→14:49)
[2022-04-29 05:47] LABS: Hematocrit 27.9 % (42-50); Hemoglobin 8.9 g/dL (12.5-18.0); Mean Cell Volume 93.9 fL (78-100); Mean Corpuscular Hgb Concent. 31.9 g/dL (32-36); Mean Platelet Volume 11.6 fL (7.5-11.0); Platelet Count 69 x10^3/uL (150-450); Red Blood Count 2.97 x10^6/uL (4.1-5.6); Red Cell Distribution Width 17.8 % (11.5-14.0); White Blood Count 7.8 x10^3/uL (4.0-10.5)
[2022-04-29 06:03] LABS: ANION GAP 7.2 MEQ/L (5-15); BLOOD UREA NITROGEN 15 mg/dL (9-20); CHLORIDE 105 mmol/L (98-107); Calcium 7.4 mg/dL (8.4-10.2); Carbon Dioxide 26 mmol/L (22-30); Creatinine 1 0.57 mg/dL (0.66-1.25); EST GLOMERULAR FILTRATION RATE > 60.0 ML/MIN; Glucose 153 mg/dL (74-106); Potassium 3.5 mmol/L (3.5-5.1); SODIUM 134 mmol/L (137-145)
[2022-04-29 07:20] LABS: Slide Review YES
[2022-04-29] MEDS: Lantus Insulin SQ SCH (08:14)
[2022-04-29] MEDS: Pepcid 20 MG VIAL IV SCH (08:14)
[2022-04-29] MEDS: Aldactone 25 MG PO SCH (08:14)
[2022-04-29] MEDS: LASIX 20 MG PO SCH (08:14)
[2022-04-29] MEDS: Lexapro PO SCH (08:14)
[2022-04-29] MEDS ORDERED: Versed 2 MG/2 ML Injection ONE (13:32)
[2022-04-29] MEDS ORDERED: DIPRIVAN 200 MG/20 ML IV ONE (13:32)
[2022-04-29 14:38] VITALS: BP 120/53; PULSE 66; O2SAT 95
[2022-04-29] MEDS ORDERED: MEDICATION ON HOLD MC SCH (15:15)
--- NOTE | 2022-04-30 08:46 | OP ---
SURGERY DATE/TIME: 04/29/2022 0512 PREOPERATIVE DIAGNOSES: 1) History of GI bleed. 2) History of anemia. 3) History of cirrhosis. 4) History of heavy alcohol use in the past. POSTOPERATIVE DIAGNOSES: 1) Mild gastritis. 2) Distal esophagitis. Question of Carpio's. 3) Evidence of possible recent bleed but no active bleeding distal esophagus to gastroesophageal junction. PROCEDURES: EGD with cold biopsy of the antrum for Helicobacter pylori. SURGEON: Dr. Shukri Beltre. ANESTHESIA: MAC. ESTIMATED BLOOD LOSS: Minimal. INDICATIONS: As noted above. This patient is seen for Dr. Dinesh Samano who was cotton stripper when the consult came in and asked that I see the patient for upper endoscopy. Risks and benefits explained in detail and not limited to and consent obtained. He has a history of cirrhosis and thrombocytopenia. He has history of GI bleed. I felt he would benefit from upper endoscopy and consent had been obtained. DESCRIPTION OF PROCEDURE AND FINDINGS: The patient is taken to the endoscopy room. MAC anesthesia introduced. After official time out and no disagreement with planned procedure, a bite block positioned. Video gastroscope easily passed down the esophagus through the patent pylorus to the third portion of the duodenum. Third, second, first portion of duodenum grossly unremarkable. Back in the stomach he did have some evidence of erosive gastritis. Cold biopsy taken to evaluate for Helicobacter pylori. Appeared to have adequate hemostasis. On retroflex there was no evidence of any large hiatal hernia. He did have generalized gastritis. The scope pulled back. Gastroesophageal junction about 39 cm. He did have some salmon pink mucosa extending up the esophagus. He had evidence of a little flair whether this is from a vein in the gastric side of the gastroesophageal junction or whether gastroesophageal varix that had bleed recently was unclear but it was felt that definitely since there is no active bleeding, it did not warrant any biopsy at this time as this is felt this is not the cause of his bleeding. Given the friability and low platelets, it was felt that biopsying this part of the esophagus would do more harm than good. It is felt as he was not having any active bleeding but he definitely needs to follow up with a wind turbine mechanical engineer to see whether they thought this area needed banded or if he had some early Carpio's whether to treat it with other methods. This patient was seen for Dr. Dinesh Samano.
--- NOTE | 2022-04-30 09:01 | CONS ---
CONSULT DATE: 04/29/2022 HISTORY: This patient is seen for Dr. Dinesh Samano who was steward/stewardess second class this weekend. He asked that I see the patient while I was here doing some outpatient procedures. He had some tarry stools. Hemoglobin was 4. He has history of cirrhosis, chronically ill. PAST MEDICAL HISTORY: Diabetes, hypercholesterolemia. Alcoholism and cirrhosis in the past. PAST SURGICAL HISTORY: Bone cyst removed. Right knee ligament surgery. I think he may have had some fluid tapped from his abdomen in the past. HOME MEDICATIONS: Xanax, Flovent Diskus, Farxiga, Basaglar, Victoza, Ativan. ALLERGIES: NKDA. FAMILY HISTORY: Negative in regards to this problem. SOCIAL HISTORY: Former smoker, history of alcohol abuse in the past. REVIEW OF SYSTEMS: Fourteen systems reviewed per admission assessment and history and physical. PHYSICAL EXAMINATION: GENERAL: A chronically ill gentleman. CHEST: Equal excursion, nonlabored breathing. CVS: Regular rate and rhythm. ABDOMEN: Distended abdomen. EXTREMITIES: No cyanosis. NEURO: Alert, oriented. PSYCH: Appropriate mood and affect. IMPRESSION: Anemia, history of alcohol abuse, history of some dark stools. This patient is seen for Dr. Dinesh Samano who asked that I do upper endoscopy on the patient. General risk of bleeding or infection, risk of bowel injury or perforation possibly requiring open procedure, risk of missed or nondiagnosis or inability to diagnose etiology of symptoms. Likely if he has varices, he needs to follow up with GI. General risk of anesthesia or sedation. Risk of aspiration but not limited to, consent obtained. Will proceed with EGD possible biopsy when OR time is available. His platelets are a little on the low side at 69,000.
--- NOTE | 2022-05-07 09:02 | PCM.HP ---
History of Present Illness - Chief Complaint Chief Complaint: Leukocytosis Date: 04/27/22 History of Present Illness: is a 61 year old male. Presented to ER not feeling well with general weakness, noting black tarry stools. - Review of Systems Constitutional: Weakness, No Fever, No Chills Eyes: No Symptoms Ears, Nose, & Throat: No Symptoms Respiratory: No Cough, No Short Of Breath Cardiac: No Chest Pain, No Edema, No Syncope Abdominal/Gastrointestinal: No Abdominal Pain, No Nausea, No Vomiting, No Diarrhea Genitourinary Symptoms: No Dysuria Musculoskeletal: No Back Pain, No Neck Pain Skin: No Rash Neurological: No Dizziness, No Focal Weakness, No Sensory Changes Psychological: No Symptoms Endocrine: No Symptoms Hematologic/Lymphatic: No Symptoms Immunological/Allergic: No Symptoms Medications & Allergies Home Medications: Home Medication List Fluticasone Propionate [Flovent Diskus] 1 spray IH DAILY PRN 10/01/12 [History Confirmed 04/26/22] Dapagliflozin Propanediol [Farxiga] 10 mg PO DAILY 04/26/22 [History Confirmed 04/26/22] Escitalopram Oxalate 20 mg PO DAILY 04/26/22 [History Confirmed 04/26/22] Furosemide 20 mg [Lasix 20 mg] 20 mg PO QAM 04/26/22 [History Confirmed 04/27/22] Insulin Aspart [NovoLOG Insulin] 0 units SQ TID 04/26/22 [History Confirmed 04/26/22] Insulin Glargine,Hum.rec.anlog [Basaglar Kwikpen U-100] 25 unit SQ BID 04/26/22 [History Confirmed 04/26/22] Liraglutide [Victoza 2-Yaniv] 1.8 mg SQ DAILY 04/26/22 [History Confirmed 04/26/22] Lorazepam 1 mg [Ativan 1 MG] 1 mg PO BID PRN PRN 04/26/22 [History Confirmed 04/26/22] Rosuvastatin Calcium 20 mg PO DAILY 04/26/22 [History Confirmed 04/26/22] Spironolactone 50 mg PO QAM 04/26/22 [History Confirmed 04/27/22] Sucralfate 1 gm [Carafate 1 GM] 1 g PO QID 20 Days tablet 04/29/22 [Rx] Allergies/Adverse Reactions: Allergies Allergy/AdvReac Type Severity Reaction Status Date / Time No Known Drug Allergies Allergy Verified 10/01/12 11:35 - Past Medical History Past Medical History: No Neurological History: No Pertinent History ENT History: No Pertinent History Cardiac History: No Pertinent History Respiratory History: No Pertinent History Endocrine Medical History: Diabetes Type II Musculoskelatal History: No Pertinent History GI Medical History: No Pertinent History History: No Pertinent History Pyscho-Social History: Anxiety Male Reproductive Disorders: No Pertinent History - Past Surgical History Past Surgical History: Yes Neuro Surgical History: No Pertinent History Cardiac History: No Pertinent History Respiratory Surgery: No Pertinent History GI Surgical History: No Pertinent History Genitourinary Surgical Hx: No Pertinent History Musculskeletal Surgical Hx: Orthopedic Surgery, Other Male Surgical History: No Pertinent History Other Surgical History: left arm bone cyst removed,right knee ligament surgery, - Social History Smoking Status: Former smoker Exposure to second hand smoke: No Alcohol: None Drug Use: none - Physical Exam General Appearance: no apparent distress, alert Neurologic Exam: alert, oriented x 3, cooperative, normal mood/affect, nml cerebellar function, sensation nml, No motor deficits Eye Exam: PERRL/EOMI, eyes nml inspection Ears, Nose, Throat Exam: normal ENT inspection, pharynx normal, moist mucous membranes Neck Exam: normal inspection, non-tender, supple, full range of motion Respiratory Exam: normal breath sounds, lungs clear, No respiratory distress Cardiovascular Exam: regular rate/rhythm, normal heart sounds, normal peripheral pulses Gastrointestinal/Abdomen Exam: soft, normal bowel sounds, No tenderness, No mass Back Exam: normal inspection, normal range of motion, No CVA tenderness, No vertebral tenderness Extremity Exam: normal inspection, normal range of motion, pelvis stable Skin Exam: normal color, warm, dry, No rash Lymphatic Exam: No adenopathy Assessment/Plan (1) Anemia Status: Acute Code(s): D64.9 - ANEMIA, UNSPECIFIED (2) Dehydration Status: Acute Code(s): E86.0 - DEHYDRATION (3) Leukocytosis Status: Acute Code(s): D72.829 - ELEVATED WHITE BLOOD CELL COUNT, UNSPECIFIED (4) Sepsis Status: Acute
--- NOTE | 2022-05-21 08:02 | PCM.DS ---
Discharge Summary Date of Admission: 04/26/22 20:33 Date of Discharge: 04/29/22 Admitting Physician: CHUY ECHAVARRIA Consults: Consults on Case 04/27/22 08:48 Consult Surgery ROUTINE Primary Care Provider: LIONEL ROE, Allergies Allergies No Known Drug Allergies Allergy (Verified 10/01/12 11:35) Hospital Summary - Hospital Course Hospital Course: Patient was admitted from ER with anemia and melana,leukocytosis without fever,volume depletion. Hgb down to 6.6 and received PRBC, Leukocytosis without focal improve to normal. EGD showed active gastritis and Hgb stable . Patient was discharged to follow with PCP . Colonoscopy to be scheduled - Vitals & Intake/Output Vital Signs: Vital Signs Temperature 97.9 F 04/29/22 14:37 Pulse Rate 66 04/29/22 14:37 Respiratory Rate 18 04/29/22 14:37 Blood Pressure 120/53 04/29/22 14:37 O2 Sat by Pulse Oximetry 95 04/29/22 14:37 - Lab Result Diagrams: 04/29/22 05:45 04/29/22 05:45 Discharge Exam General Appearance: no apparent distress, other (on his way down for EGD) Neurologic Exam: alert, oriented x 3, cooperative Final Diagnosis/Problem List - Final Discharge Diagnosis/Problem (1) Anemia Status: Chronic Assessment & Plan: acute anemia resolved afte transfusion PRBC Code(s): D64.9 - ANEMIA, UNSPECIFIED (2) Leukocytosis Status: Resolved Code(s): D72.829 - ELEVATED WHITE BLOOD CELL COUNT, UNSPECIFIED (3) Dehydration Status: Resolved Code(s): E86.0 - DEHYDRATION (4) Alcoholic cirrhosis of liver with ascites Status: Acute Assessment & Plan: no longer drinking ETOH for months Code(s): K70.31 - ALCOHOLIC CIRRHOSIS OF LIVER WITH ASCITES - Discharge Disposition: Home, Self-Care Condition: Fair Prescriptions: New Sucralfate 1 gm [Carafate 1 GM] 1 g PO QID 20 Days tablet Continue Fluticasone Propionate [Flovent Diskus] 1 spray IH DAILY PRN PRN Reason: Allergies Liraglutide [Victoza 2-Yaniv] 1.8 mg SQ DAILY Insulin Glargine,Hum.rec.anlog [Basaglar Kwikpen U-100] 25 unit SQ BID Dapagliflozin Propanediol [Farxiga] 10 mg PO DAILY Lorazepam 1 mg [Ativan 1 MG] 1 mg PO BID PRN PRN PRN Reason: Anxiety Escitalopram Oxalate 20 mg PO DAILY Insulin Aspart [NovoLOG Insulin] 0 units SQ TID Furosemide 20 mg [Lasix 20 mg] 20 mg PO QAM Spironolactone 50 mg PO QAM Rosuvastatin Calcium 20 mg PO DAILY Discontinued Naproxen 500 mg [Naprosyn 500 MG] 500 mg PO BID PRN PRN Reason: Pain Instructions: Gastritis (DC), Ulcer and Gastritis Diet Additional Instructions: Follow up with: BRIAN WHITE MD [COURTESY STAFF] - Call for Appointment LIONEL ROE DO [Primary Care Provider] - 05/03/22 2:00 pm Forms: Discharge Instructions
== END 2022-04-29 16:10 | disposition home or self-care (01) | DRG 379 ==
LOC: ED 13:03 → MED SURG 20:33
PROVIDERS: ADMIT Family Medicine; ATTEND Family Medicine
PROC: 0DB68ZX Excision of Stomach, Via Natural or Artificial Opening Endoscopic, Diagnostic (ICD-10-PCS; principal; 2022-04-29)
DX: K92.2 Gastrointestinal hemorrhage, unspecified (principal); D72.829 Elevated white blood cell count, unspecified; E86.9 Volume depletion, unspecified; D64.9 Anemia, unspecified; K74.60 Unspecified cirrhosis of liver; F10.21 Alcohol dependence, in remission; K20.90 Esophagitis, unspecified without bleeding; E11.9 Type 2 diabetes mellitus without complications; E78.5 Hyperlipidemia, unspecified; F41.9 Anxiety disorder, unspecified; Z79.899 Other long term (current) drug therapy; Z20.828 Contact with and (suspected) exposure to other viral communicable diseases
CPT/HCPCS: 0241U; 36000; 36415; 36430; 43239; 71260; 74176; 80048; 80053; 80307; 81015; 82150; 82274; 82947; 83036; 83605; 83690; 84145; 85014; 85018; 85025; 85027; 86850; 86900; 86901; 86922; 96365; 96374; 96375; 99285; 99291; 88305; 88312; J1815; J1940; J2250; J2405; J2704; P9016; A9270-GY; G0328; G0480

== ENCOUNTER 2024-05-17 08:37 | Day surgery (SDC) | payer OTHER ==
--- NOTE | 2024-05-17 08:04 | HP ---
HISTORY AND PHYSICAL HISTORY OF PRESENT ILLNESS: He has history of anemia, needs EGD and colonoscopy. No bloody stools. No change in bowel habits. No new pain. Family history negative for colon cancer. PAST MEDICAL HISTORY: Type 2 diabetes, hyperlipidemia, depression, anemia, reflux, CHF, heart disease. HOME MEDICATIONS: Lexapro, Ozempic, hydrocodone, rosuvastatin, spironolactone, furosemide, Protonix, carvedilol, Loratadine, Basaglar, Lorazepam, Farxiga. ALLERGIES: No known drug allergies. PAST SURGICAL HISTORY: He has had knee scope in the past, had a cyst on his bone on the left humerus in the past. SOCIAL HISTORY: No smoking or alcohol abuse. FAMILY HISTORY: Hypertension and heart disease. Negative for colon cancer. REVIEW OF SYSTEMS: Twelve systems reviewed. No chest pain or palpitations. Other systems negative or noncontributory as above and per preadmission questionnaire. PHYSICAL EXAMINATION: GENERAL: Height 5 feet 9 inches. BMI 30.72. HEENT: Sclerae nonicteric. NECK: No JVD. CHEST: Clear to auscultation. CARDIOVASCULAR: Regular rate and rhythm. ABDOMEN: Soft. EXTREMITIES: No clubbing, cyanosis or edema. NEUROLOGIC: Alert and oriented, moving all extremities symmetrically. PSYCHIATRIC: Appropriate mood and affect. RECTAL: Deferred until diagnostic exam. IMPRESSION: Anemia. Needs EGD and colonoscopy. Feel he is candidate. Explained risks of bleeding, infection, risk of bowel injury or perforation possibly requiring other procedures but not limited to risk of barium enema or swallow, risk of anesthesia or sedation, risk of bowel prep but not limited to. Will proceed with outpatient EGD and colonoscopy under MAC anesthesia for anemia. Otherwise, continue medications for history of depression, reflux, hypertension, diabetes, hyperlipidemia, and heart disease.
[2024-05-17] MEDS: Lactated Ringers 1,000 ML IV SCH (08:44)
[2024-05-17] MEDS ORDERED: Xylocaine-Mpf 2% 5 Ml Vial ONE (10:39)
[2024-05-17] MEDS ORDERED: DIPRIVAN 200 MG/20 ML IV ONE ×2 (10:39→11:03)
[2024-05-17] MEDS ORDERED: Versed 2 MG/2 ML Injection ONE (10:43)
[2024-05-17 11:42] VITALS: RESP 18; TEMP 98.1
[2024-05-17 12:04] VITALS: BP 111/62; PULSE 56; O2SAT 97
--- NOTE | 2024-05-18 20:55 | OP ---
SURGERY DATE/TIME: 05/17/2024 [id number] PREOPERATIVE DIAGNOSES: 1) Anemia. 2) Need for colonoscopy. POSTOPERATIVE DIAGNOSES: 1) Minimal amount of gastritis or gastric erythema. 2) Short segment distal esophagitis. 3) Patchy area of thin pink mucosa proximal esophagus. 4) Diverticulosis. 5) Polyps sigmoid colon and rectum, vague raised lesion versus hyperplasia ascending colon. 6) Diverticulosis. 7) Fair bowel prep. 8) ASA class 3. 9) Withdrawal time of colonoscopy was approximately 12 minutes. PROCEDURE: 1) Esophagogastroduodenoscopy with cold biopsy of antrum for Helicobacter pylori, cold biopsy of distal esophagus to evaluate for short segment distal esophagitis, cold biopsy salmon pink mucosa proximal esophagus. 2) Colonoscopy to cecum, hot biopsy small vague raised lesion versus hyperplastic lesion ascending colon. 3) Hot biopsy polypectomy sigmoid colon polyp x2, rectal polyp x1 removed with hot biopsy forceps. SURGEON: Jani Beltre MD ANESTHESIA: MAC. ESTIMATED BLOOD LOSS: Minimal. INDICATIONS: Consent obtained. DESCRIPTION OF PROCEDURE AND FINDINGS: Patient was taken to the endoscopy room. MAC anesthesia induced. After official time-out for planned procedure. Bite block positioned. Videogastroscope easily passed down the esophagus through the patent pylorus to the junction of the third and fourth portion of duodenum. On withdrawal of scope, duodenum was fairly unremarkable. Scope pulled back into the stomach. There was a little bit of gastric erythema, a little bit more pronounced in the proximal stomach as well. Cold biopsy was taken to evaluate for H pylori. No signs of any ulcers or obvious masses. On retroflexion, was fairly snug up against the scope to limit insufflation of the stomach. Scope was straightened. GE junction about 40 cm. There was a couple centimeter short area of, 1.5 to 2 cm distal esophagus with a little bit of inflammation, erosion. Cold biopsy taken for pathology. Adequate hemostasis at end of procedure. Scope pulled back up to more proximal esophagus. There was a patchy are of salmon pink mucosa. No gross mass but cold biopsy was taken for evaluation of this area. Again, looked like very smooth salmon pink mucosa patchy area proximal so. Scope was withdrawn. Patient tolerated the procedure well. Attention then turned to colonoscopy. Digital rectal exam did not reveal any rectal masses. Videocolonoscope inserted and passed up through a tortuous sigmoid, descending, transverse, and ascending colon around the cecum. Appendiceal orifice and valve well visualized. Prep overall was fair, had a little bit of liquidy, semisolid stool limiting exam for very small lesions particularly on the right side of the colon. Scope was carefully withdrawn over the next 12 minutes or so. Suctioning irrigating the colon out. There was a vague raised lesion versus hyperplasia in the ascending colon biopsied with hot biopsy forceps. Otherwise, scope passed. Some diverticulosis in the left colon. Scope pulled back to sigmoid colon. A couple of early polyps versus hyperplastic lesions removed with hot biopsy forceps. Good hemostasis noted. Another small polyp in the rectum was removed with hot biopsy polypectomy. Good hemostasis noted. No signs of any large polyps, masses, or obstructing lesions. The scope was withdrawn. Patient tolerated the procedure well. There were no immediate complications. I went out to discuss findings with family out in the waiting area.
== END 2024-05-17 12:00 | disposition home or self-care (01) ==
LOC: SDC 08:37
PROVIDERS: ATTEND Surgery
DX: K29.70 Gastritis, unspecified, without bleeding (principal); D64.9 Anemia, unspecified; E11.9 Type 2 diabetes mellitus without complications; K20.90 Esophagitis, unspecified without bleeding; K57.30 Diverticulosis of large intestine without perforation or abscess without bleeding; K62.1 Rectal polyp; D12.5 Benign neoplasm of sigmoid colon
CPT/HCPCS: 82947; J2250; J2704

== ENCOUNTER 2024-07-21 09:13 | Day surgery (SDC) | payer OTHER ==
[2024-07-21] MEDS ORDERED: Xylocaine-Mpf 2% 5 Ml Vial IJ ONE (09:14)
[2024-07-21] MEDS ORDERED: DIPRIVAN 200 MG/20 ML IV ONE (10:56)
--- NOTE | 2024-07-21 12:56 | XRAY ---
Indication: Bilateral L4-S1 MBB. Intraoperative fluoroscopy provided for 23 seconds. Single digital spot image submitted for interpretation demonstrates posterior needle tips projecting over expected left and right L4-S1 nerve roots. Correlate with intraoperative findings/report.
--- NOTE | 2024-07-21 14:47 | XRAY ---
23 seconds of fluoroscopy was used in surgery for a bilateral L4-S1 MBB.
== END 2024-07-21 11:35 | disposition home or self-care (01) ==
LOC: SDC-PAIN 09:13
PROVIDERS: ATTEND Psychiatry & Neurology Pain Medicine
DX: M47.816 Spondylosis without myelopathy or radiculopathy, lumbar region (principal); E11.9 Type 2 diabetes mellitus without complications
CPT/HCPCS: 64493; 64494; 72020; 77002; 82947; J2704

== ENCOUNTER 2024-09-15 06:53 | Day surgery (SDC) | payer OTHER ==
[2024-09-15] MEDS ORDERED: BUPIVACAINE 0.5% VIAL IJ ONE (06:54)
[2024-09-15] MEDS ORDERED: Depo-Medrol 40 MG/ML IM ONE (06:54)
[2024-09-15] MEDS ORDERED: propofoL IV ONE (08:03)
--- NOTE | 2024-09-15 09:38 | XRAY ---
Indication: Bilateral L4-S1 MBB. Intraoperative fluoroscopy provided for 12 seconds. Single digital spot image submitted for interpretation demonstrates posterior needle tips projecting over expected left and right L4-S1 nerve roots. Correlate with intraoperative findings/report.
--- NOTE | 2024-09-15 09:42 | XRAY ---
12 seconds of fluoroscopy was used in surgery for a bilateral L4-S1 MBB.
== END 2024-09-15 08:22 | disposition home or self-care (01) ==
LOC: SDC-PAIN 06:53
PROVIDERS: ATTEND Psychiatry & Neurology Pain Medicine
DX: M47.816 Spondylosis without myelopathy or radiculopathy, lumbar region (principal); E11.9 Type 2 diabetes mellitus without complications
CPT/HCPCS: 64493; 64494; 72020; 77002; 82947; J2704

== ENCOUNTER 2024-10-06 09:26 | Day surgery (SDC) | payer OTHER ==
[2024-10-06] MEDS ORDERED: propofoL IV ONE ×2 (10:42→10:46)
--- NOTE | 2024-10-06 12:06 | XRAY ---
Indication: Right L4-S1 RFA. Intraoperative fluoroscopy provided for 24 seconds. 4 digital spot image submitted for interpretation demonstrates posterior needle tips projecting over expected right L4-S1 nerve roots. Correlate with intraoperative findings/report.
--- NOTE | 2024-10-06 12:57 | XRAY ---
24 seconds of fluoroscopy was used in surgery for a right L4-S1 RFA.
== END 2024-10-06 11:16 | disposition home or self-care (01) ==
LOC: SDC-PAIN 09:26
PROVIDERS: ATTEND Psychiatry & Neurology Pain Medicine
DX: M47.816 Spondylosis without myelopathy or radiculopathy, lumbar region (principal); E11.9 Type 2 diabetes mellitus without complications
CPT/HCPCS: 72100; 77002; 82947; J2704

== ENCOUNTER 2024-10-13 10:25 | Day surgery (SDC) | payer OTHER ==
[2024-10-13] MEDS ORDERED: BUPIVACAINE 0.5% VIAL IJ ONE (10:26)
[2024-10-13] MEDS ORDERED: LIDOCAINE HCL 1% AMPUL 5 ML IJ ONE (10:26)
[2024-10-13] MEDS ORDERED: Depo-Medrol 40 MG/ML IM ONE (10:26)
[2024-10-13] MEDS ORDERED: Lactated Ringers 500 ML IV ONE (11:09)
[2024-10-13] MEDS ORDERED: propofoL IV ONE (12:50)
--- NOTE | 2024-10-13 13:24 | XRAY ---
Indication: Left L4-S1 RFA. Intraoperative fluoroscopy provided for 23 seconds. 3 digital spot image submitted for interpretation demonstrates posterior needle tips projecting over expected left L4-S1 nerve roots. Correlate with intraoperative findings/report.
--- NOTE | 2024-10-13 14:58 | XRAY ---
23 seconds of fluoroscopy was used in surgery for a left L4-S1 RFA.
== END 2024-10-13 13:28 | disposition home or self-care (01) ==
LOC: SDC-PAIN 10:25
PROVIDERS: ATTEND Psychiatry & Neurology Pain Medicine
DX: M47.817 Spondylosis without myelopathy or radiculopathy, lumbosacral region (principal); E11.9 Type 2 diabetes mellitus without complications
CPT/HCPCS: 64635; 64636; 72100; 77002; 82947; J2704